=== PATIENT | male | born 1975 | race African-American/Black ===

== ENCOUNTER 2021-08-23 12:15 | Emergency (ER) | payer OTHER ==
[2021-08-23 12:31] VITALS: BP 130/83; PULSE 86; TEMP 98.4; BMI 30.8
[2021-08-25 01:06] LABS: SARS-CoV-2 NAA Detected (Not Detected)
== END 2021-08-23 14:04 | disposition home or self-care (01) ==
LOC: JER 12:15
DX: J20.9 Acute bronchitis, unspecified (principal); R05.1 Acute cough; Z20.822 Contact with and (suspected) exposure to COVID-19
CPT/HCPCS: 87804; 99283-25; C9803; U0003; U0005

== ENCOUNTER 2022-07-27 07:19 | Emergency (ER) | payer OTHER ==
[2022-07-27 07:29] VITALS: BP 114/82; PULSE 83; RESP 18; TEMP 98.3; BMI 30.8
== END 2022-07-27 09:12 | disposition home or self-care (01) ==
LOC: JER 07:19 → JERFT 07:19
DX: S99.922A Unspecified injury of left foot, initial encounter (principal); Y93.67 Activity, basketball
CPT/HCPCS: 73630-TC-LT; 99283-25

== ENCOUNTER 2022-09-28 19:47 | Emergency (ER) | payer OTHER ==
[2022-09-28 19:59] VITALS: BP 129/92; PULSE 73; RESP 19; TEMP 97.7; BMI 31.5
[2022-09-28] MEDS ORDERED: KETOROLAC TROMETHAMINE 30 MG/1 ML VIAL IVPUSH ONE (21:39)
[2022-09-28] MEDS ORDERED: METOCLOPRAMIDE HCL INJECTION 10 MG/2 ML VIAL IVPUSH ONE (21:39)
[2022-09-28] MEDS ORDERED: SODIUM CHLORIDE 0.9% 500 ML INFUS.BAG IV ONE (21:39)
[2022-09-28] MEDS ORDERED: METOCLOPRAMIDE HCL INJECTION 10 MG/2 ML VIAL ONE (22:01)
[2022-09-28] MEDS ORDERED: KETOROLAC TROMETHAMINE 30 MG/1 ML VIAL ONE (22:02)
[2022-09-28 22:26] LABS: BASO % 0.8 % (0-2.0); EOS % 1.6 % (0-4.5); HEMATOCRIT 42.9 % (35.4-49); HEMOGLOBIN 14.9 GM/dL (11.7-16.9); LYMPH % 25.4 % (8-40); MCH 30.5 pg (25.7-33.7); MCHC 34.7 g/dl (32.0-35.9); MEAN CELL VOLUME 87.8 fl (80-96); MEAN PLT VOLUME 8.4 fl (7.5-11.1); MONO % 6.2 % (3.8-10.2); PLATELET COUNT 180 10^3/uL (134-434); RBC 4.89 M/mm3 (4.00-5.60); RDW 13.4 % (11.9-15.9); WHITE BLOOD COUNT 4.4 K/mm3 (4.0-10.0)
[2022-09-28 22:46] LABS: CALCIUM 9.3 mg/dL (8.5-10.1)
[2022-09-28 22:47] LABS: BLOOD UREA NITROGEN 10.1 mg/dL (7-18)
[2022-09-28 22:50] LABS: CREATININE 1.4 mg/dL (0.55-1.3)
[2022-09-28 22:51] LABS: BILIRUBIN,TOTAL 0.8 mg/dL (0.2-1); TOT PROT 7.5 g/dl (6.4-8.2)
== END 2022-09-29 01:59 | disposition home or self-care (01) ==
LOC: JER 19:47
PROC: 3E033GC Introduction of Other Therapeutic Substance into Peripheral Vein, Percutaneous Approach (ICD-10-PCS; principal; 2022-09-28)
PROC: 3E0333Z Introduction of Anti-inflammatory into Peripheral Vein, Percutaneous Approach (ICD-10-PCS; 2022-09-28)
PROC: 3E033GC Introduction of Other Therapeutic Substance into Peripheral Vein, Percutaneous Approach (ICD-10-PCS; 2022-09-28)
DX: R06.00 Dyspnea, unspecified (principal); R51.9 Headache, unspecified
CPT/HCPCS: 0241U-QW; 36415; 71046-TC-FY; 71275-TC; 80053; 85025; 85379; 99285-25

== ENCOUNTER 2023-12-12 21:19 | Emergency (ER) | payer OTHER ==
[2023-12-12 21:34] VITALS: BP 128/80; PULSE 88; RESP 18; TEMP 97.8; BMI 32.3
[2023-12-12] MEDS ORDERED: ACETAMINOPHEN INJECTION 100 ML IVPB ONE (22:36)
[2023-12-12] MEDS: ACETAMINOPHEN 1000 MG/100 ML BAG IVPB ONE (22:50)
[2023-12-12 23:01] LABS: BASO % 1.1 % (0-2.0); EOS % 2.5 % (0-4.5); HEMATOCRIT 43.1 % (35.4-49); HEMOGLOBIN 14.5 GM/dL (11.7-16.9); LYMPH % 31.4 % (8-40); MCH 30.5 pg (25.7-33.7); MCHC 33.7 g/dl (32.0-35.9); MEAN CELL VOLUME 90.4 fl (80-96); MEAN PLT VOLUME 8.5 fl (7.5-11.1); MONO % 9.6 % (3.8-10.2); NEUT % 55.4 % (42.8-82.8); PLATELET COUNT 179 10^3/uL (134-434); RBC 4.77 M/mm3 (4.00-5.60); RDW 14.4 % (11.9-15.9); WHITE BLOOD COUNT 3.8 K/mm3 (4.0-10.0)
[2023-12-12 23:03] LABS: INR 1.05 (0.83-1.09); PROTHROMBIN TIME (PATIENT) 12.2 SEC (9.7-13.0)
[2023-12-12 23:06] LABS: ACTIVATED PTT 28.6 SECONDS (25.2-36.5)
[2023-12-12 23:16] LABS: CHLORIDE 109 mmol/L (98-107); POTASSIUM 4.4 mmol/L (3.5-5.1); SODIUM 142 mmol/L (136-145)
[2023-12-12 23:17] LABS: CALCIUM 9.1 mg/dL (8.5-10.1)
[2023-12-12 23:18] LABS: ALBUMIN 3.8 g/dl (3.4-5.0); ANION GAP 6 mmol/L (4-13); BLOOD UREA NITROGEN 10.5 mg/dL (7-18); CO2 26 mmol/L (21-32); GLUCOSE,RANDOM 91 mg/dL (74-106); MAGNESIUM 2.3 mg/dL (1.8-2.4)
[2023-12-12 23:21] LABS: CREATININE 1.4 mg/dL (0.55-1.3); SGOT/AST 19 U/L (15-37); SGPT/ALT 40 U/L (13-61)
[2023-12-12 23:22] LABS: BILIRUBIN,TOTAL 0.7 mg/dL (0.2-1)
[2023-12-12 23:23] LABS: TOT PROT 7.2 g/dl (6.4-8.2)
[2023-12-12 23:24] LABS: ALK PHOS 74 U/L (45-117)
[2023-12-12 23:26] LABS: N-TERMINAL BNP < 5.0 pg/ml (5-125)
== END 2023-12-13 00:30 | disposition home or self-care (01) ==
LOC: JER 21:19
PROC: 3E033NZ Introduction of Analgesics, Hypnotics, Sedatives into Peripheral Vein, Percutaneous Approach (ICD-10-PCS; principal; 2023-12-12)
DX: R53.1 Weakness (principal); R55 Syncope and collapse; Z20.822 Contact with and (suspected) exposure to COVID-19
CPT/HCPCS: 0241U-QW; 36415; 71045-TC-FY; 80053; 83735; 83880; 84484; 85025; 85610; 85730; 93005; 93010; 99285-25; J0131